=== PATIENT | female | born 1965 | race Caucasian/White ===

== ENCOUNTER 2017-07-10 11:03 | Emergency (ER) | payer BC ==
[~2017-07-10] VITALS: Ht 167.6 cm; Wt 61.2 kg
[2017-07-10 12:56] LABS: Basophils # (auto) 0.1 uL; Basophils % (auto) 0.9 % (0.0-2.0); Eosinophils # (auto) 0 uL; Eosinophils % (auto) 0.7 % (0.0-7.0); Hemoglobin 13.8 g/dL (12.2-16.2); Lymphocytes # (auto) 1.9 uL; Lymphocytes % (auto) 28.7 % (10.0-50.0); Mean Corpuscular Hemoglobin 30.8 pg (28.0-32.0); Mean Corpuscular Hgb Conc. 32.9 g/dL (32.0-36.0); Mean Corpuscular Volume 93.5 fL (80.0-100.0); Monocytes # (auto) 0.6 uL; Monocytes % (auto) 8.3 % (0.0-12.0); Neutrophils # (auto) 4.1 uL; Neutrophils % (auto) 61.4 % (37.0-80.0); Nucleated Red Blood Cells % 0.1 %; Platelet Count (auto) 298 10^3/uL (140-450); Red Blood Cells 4.49 10^6/uL (4.0-5.20); Red Cell Distribution Width 13.7 % (11.8-14.3); White Blood Cell 6.7 10^3/uL (4.4-10.8)
[2017-07-10 13:37] LABS: Alanine Aminotransferase 50 U/L (13-56); Albumin 4.4 g/dL (3.4-5.0); Alkaline Phosphatase 161 U/L (45-117); Anion Gap 9 (5-15); Aspartate Aminotransferase 27 U/L (15-37); BUN/Creatinine Ratio 13.5; Bilirubin, Total 0.3 mg/dL (0.2-1.0); Blood Urea Nitrogen 13 mg/dL (7-18); Calcium 9.2 mg/dL (8.5-10.1); Carbon Dioxide 25 mmol/L (21-32); Chloride 107 mmol/L (98-107); GFR African American 78 mL/min; GFR Non-African American 64 mL/min; Glucose 91 mg/dL (74-106); Magnesium 2.5 mg/dL (1.6-2.6); Potassium 3.9 mmol/L (3.5-5.1); Sodium 141 mmol/L (136-145); Total Protein 8.1 g/dL (6.4-8.2)
[2017-07-10 15:08] VITALS: BP 117/82
[2017-07-10 15:33] LABS: Urine WBC None Seen /hpf (0 - 5)
[2017-07-10 16:07] LABS: Urine Bacteria NONE SEEN /hpf (None Seen); Urine Blood Negative /uL (Negative); Urine Specific Gravity 1.004 (1.001-1.035)
== END 2017-07-10 16:49 | disposition home or self-care (01) ==
LOC: ER 11:03
DX: F41.9 Anxiety disorder, unspecified (principal); R42 Dizziness and giddiness; Z88.1 Allergy status to other antibiotic agents; Z90.710 Acquired absence of both cervix and uterus
CPT/HCPCS: 36415; 70450; 71046; 80053; 81001; 83735; 84484; 85025; 93005

== ENCOUNTER 2017-07-11 12:23 | Inpatient (IN) | payer BC ==
[~2017-07-11] VITALS: Ht 167.6 cm; Wt 64.7 kg
[2017-07-11] MEDS ORDERED: SODIUM CHLORIDE 0.9% 1,000 ML IV ONE (17:25)
[2017-07-11 17:56] LABS: Basophils # (auto) 0.1 uL; Basophils % (auto) 0.9 % (0.0-2.0); Eosinophils # (auto) 0.1 uL; Eosinophils % (auto) 1.1 % (0.0-7.0); Hematocrit 41.6 % (36.0-46.0); Hemoglobin 13.7 g/dL (12.2-16.2); Lymphocytes # (auto) 2.3 uL; Lymphocytes % (auto) 33.2 % (10.0-50.0); Mean Corpuscular Hemoglobin 30.9 pg (28.0-32.0); Mean Corpuscular Volume 93.7 fL (80.0-100.0); Monocytes # (auto) 0.6 uL; Monocytes % (auto) 8.1 % (0.0-12.0); Neutrophils % (auto) 56.7 % (37.0-80.0); Nucleated Red Blood Cells % 0.1 %; Platelet Count (auto) 307 10^3/uL (140-450); Red Blood Cells 4.44 10^6/uL (4.0-5.20); Red Cell Distribution Width 13.8 % (11.8-14.3); White Blood Cell 7.1 10^3/uL (4.4-10.8)
[2017-07-11] MEDS ORDERED: NITROGLYCERIN 0.4 MG SL TAB SL PRN (18:00)
[2017-07-11] MEDS ORDERED: LORazepam 0.5 MG TAB PO PRN (18:00)
[2017-07-11] MEDS ORDERED: METOCLOPRAMIDE HCL 5MG/ml INJ 2ml VIAL IV PRN (18:00)
[2017-07-11] MEDS ORDERED: MORPHINE SULFATE 10 MG/ML INJ 1ML SDV IV PRN (18:00)
[2017-07-11] MEDS ORDERED: ALUM & MAG HYDROX-SIMETH LIQ(MAALOX) 30 ML PO PRN (18:00)
[2017-07-11 18:07] LABS: Alanine Aminotransferase 39 U/L (13-56); Albumin 3.9 g/dL (3.4-5.0); Anion Gap 7 (5-15); Aspartate Aminotransferase 21 U/L (15-37); BUN/Creatinine Ratio 18.3; Blood Alcohol < 3.0 mg/dL (0-5); Blood Urea Nitrogen 17 mg/dL (7-18); Calcium 8.7 mg/dL (8.5-10.1); Carbon Dioxide 24 mmol/L (21-32); Chloride 108 mmol/L (98-107); GFR African American 81 mL/min; GFR Non-African American 67 mL/min; Glucose 78 mg/dL (74-106); Magnesium 2.2 mg/dL (1.6-2.6); Potassium 3.7 mmol/L (3.5-5.1); Sodium 139 mmol/L (136-145)
[2017-07-11] MEDS: SODIUM CHLORIDE 0.9% 1,000 ML IV SCH (18:08)
[2017-07-11 18:12] LABS: Alkaline Phosphatase 147 U/L (45-117); Bilirubin, Total 0.2 mg/dL (0.2-1.0); Total Protein 7.6 g/dL (6.4-8.2)
[2017-07-11 20:00] VITALS: BP 101/57
[2017-07-11] MEDS: MORPHINE SULFATE 10 MG/ML INJ 1ML SDV IV PRN (20:22)
[2017-07-11 22:00] VITALS: BP 101/57
[2017-07-12] MEDS ORDERED: SUMAtriptan SUCCINATE 25 MG TAB PO PRN (00:15)
[2017-07-12] MEDS: HYDROcodone-ACET 5/325MG TAB PO PRN ×2 (02:21→08:19)
[2017-07-12] MEDS ORDERED: POM (03:17)
[2017-07-12] MEDS ORDERED: PANT1INJ3 PO (03:18)
[2017-07-12] MEDS ORDERED: SUMA100T15 PO (03:18)
[2017-07-12] MEDS ORDERED: TOPI50TA53 PO (03:19)
[2017-07-12] MEDS ORDERED: GABA-339 PO (03:22)
[2017-07-12] MEDS: SODIUM CHLORIDE 0.9% 1,000 ML IV SCH ×3 (04:23→20:44)
[2017-07-12] MEDS: MORPHINE SULFATE 10 MG/ML INJ 1ML SDV IV PRN ×3 (04:49→15:17)
[2017-07-12 05:00] VITALS: BP 89/57
[2017-07-12 08:51] VITALS: BP 94/61
[2017-07-12 10:04] LABS: Basophils # (auto) 0 uL; Hemoglobin 11.7 g/dL (12.2-16.2); Mean Corpuscular Hemoglobin 31.1 pg (28.0-32.0); Red Blood Cells 3.76 10^6/uL (4.0-5.20); Red Cell Distribution Width 13.8 % (11.8-14.3)
[2017-07-12] MEDS ORDERED: SUMATRIPTAN SUCCINATE 100 MG PO PRN (10:15)
[2017-07-12 10:19] LABS: Basophils % (auto) 0.7 % (0.0-2.0); Eosinophils # (auto) 0.1 uL; Eosinophils % (auto) 1.6 % (0.0-7.0); Hematocrit 35.1 % (36.0-46.0); Lymphocytes # (auto) 2.2 uL; Mean Corpuscular Hgb Conc. 33.4 g/dL (32.0-36.0); Mean Corpuscular Volume 93.3 fL (80.0-100.0); Monocytes # (auto) 0.5 uL; Monocytes % (auto) 8.9 % (0.0-12.0); Neutrophils # (auto) 2.3 uL; Neutrophils % (auto) 45.8 % (37.0-80.0); Platelet Count (auto) 246 10^3/uL (140-450); White Blood Cell 5.1 10^3/uL (4.4-10.8)
[2017-07-12 10:41] LABS: Albumin 3.2 g/dL (3.4-5.0); BUN/Creatinine Ratio 18.6; Bilirubin, Total 0.2 mg/dL (0.2-1.0); Potassium 4.2 mmol/L (3.5-5.1); Total Protein 6.1 g/dL (6.4-8.2)
[2017-07-12] MEDS: ARIPIPRAZOLE 5 MG PO SCH (10:55)
[2017-07-12] MEDS: TOPIRAMATE 25 MG TAB PO SCH ×2 (10:56→21:18)
[2017-07-12] MEDS: PANTOPRAZOLE 40 MG TAB PO SCH (10:56)
[2017-07-12] MEDS: DESVENLAFAXINE 100 MG PO SCH (10:56)
[2017-07-12] MEDS: GABAPENTIN 300 MG CAP PO SCH (11:22)
[2017-07-12 13:00] VITALS: BP 96/62
[2017-07-12 17:00] VITALS: BP 102/60
[2017-07-12] MEDS ORDERED: LORazepam 2MG/ML-1ML VIAL IV PRN (20:00)
[2017-07-12 20:17] LABS: Cholesterol 139 mg/dL (< 200); HDL Cholesterol 80 mg/dL (40-59); LDL Cholesterol 55 mg/dL (< 100); Triglycerides 58 mg/dL (< 150)
[2017-07-12 21:38] VITALS: BP 103/62
[2017-07-12] MEDS ORDERED: PATIENTS OWN MEDICATION (Topiramate 50 MG) PO SCH (22:00)
[2017-07-12] MEDS ORDERED: METOCLOPRAMIDE HCL 10 MG TAB PO SCH (22:00)
[2017-07-12] MEDS ORDERED: METOCLOPRAMIDE HCL 10 MG TAB PO ONE (23:00)
[2017-07-13] MEDS: ONDANSETRON HCL 4 MG/2 ML VIAL IV PRN ×2 (00:36→21:30)
[2017-07-13] MEDS: HYDROcodone-ACET 5/325MG TAB PO PRN ×3 (00:36→21:30)
[2017-07-13 05:00] VITALS: BP 100/63
[2017-07-13] MEDS: SODIUM CHLORIDE 0.9% 1,000 ML IV SCH (06:06)
[2017-07-13] MEDS: METOCLOPRAMIDE HCL 10 MG TAB PO SCH ×3 (06:06→21:30)
[2017-07-13 09:00] VITALS: BP 103/63
[2017-07-13] MEDS: TOPIRAMATE 25 MG TAB PO SCH ×2 (10:38→21:29)
[2017-07-13] MEDS: GABAPENTIN 300 MG CAP PO SCH (10:38)
[2017-07-13] MEDS: ARIPIPRAZOLE 5 MG PO SCH (10:39)
[2017-07-13] MEDS: DESVENLAFAXINE 100 MG PO SCH (10:39)
[2017-07-13] MEDS: PANTOPRAZOLE 40 MG TAB PO SCH (10:39)
[2017-07-13] MEDS: DEXAMETHASONE INJECTION 10 MG in D5W 5% 50 ML IV SCH (11:24)
[2017-07-13 12:50] VITALS: BP 104/62
[2017-07-13] MEDS: ACETAMINOPHEN 325 MG TAB PO PRN (13:53)
[2017-07-13 16:50] VITALS: BP 110/69
[2017-07-13 21:51] VITALS: BP 104/61
[2017-07-14] MEDS: SODIUM CHLORIDE 0.9% 1,000 ML IV SCH ×2 (01:36→13:51)
[2017-07-14 05:00] VITALS: BP 111/74
[2017-07-14] MEDS ORDERED: LORazepam 2MG/ML-1ML VIAL IV PRN (06:15)
[2017-07-14] MEDS: ACETAMINOPHEN 325 MG TAB PO PRN (06:32)
[2017-07-14] MEDS: METOCLOPRAMIDE HCL 10 MG TAB PO SCH ×2 (06:32→13:51)
[2017-07-14 08:00] VITALS: BP 110/60
[2017-07-14 09:00] VITALS: BP 110/60
[2017-07-14] MEDS: TOPIRAMATE 25 MG TAB PO SCH (11:20)
[2017-07-14] MEDS: DEXAMETHASONE INJECTION 10 MG in D5W 5% 50 ML IV SCH (11:26)
[2017-07-14] MEDS: DESVENLAFAXINE 100 MG PO SCH (11:27)
[2017-07-14] MEDS: ARIPIPRAZOLE 5 MG PO SCH (11:27)
[2017-07-14] MEDS: GABAPENTIN 300 MG CAP PO SCH (11:27)
[2017-07-14] MEDS: PANTOPRAZOLE 40 MG TAB PO SCH (11:27)
[2017-07-14 13:23] VITALS: BP 101/58
[2017-07-14 17:24] VITALS: BP 110/68
[2017-07-14 18:32] VITALS: BP 110/68
== END 2017-07-14 19:20 | disposition home or self-care (01) | DRG 103 ==
LOC: EDBD 12:23 → ER 12:32 → OVERFLOW 12:33 → WEST WING 19:42
PROVIDERS: ADMIT Internal Medicine; ATTEND Internal Medicine
DX: G43.809 Other migraine, not intractable, without status migrainosus (principal); Z79.82 Long term (current) use of aspirin; Z82.49 Family history of ischemic heart disease and other diseases of the circulatory system; Z79.899 Other long term (current) drug therapy; Z83.3 Family history of diabetes mellitus; Z90.710 Acquired absence of both cervix and uterus; Z88.8 Allergy status to other drugs, medicaments and biological substances
CPT/HCPCS: 36415; 70545; 70551; 80053; 80061; 80320; 83735; 84484; 85025; 93005; 93306; 93886; J1100; J2405; J7060